=== PATIENT | male | born 1965 | race African-American/Black ===

== ENCOUNTER 2017-01-05 00:03 | Emergency (ER) | payer MEDICAID ==
[~2017-01-05] VITALS: Ht 172.7 cm; Wt 75.0 kg
[~2017-01-05 00:03] MED LIST: KEPP500 PO
[2017-01-05] MEDS ORDERED: SODIUM CHLORIDE 0.9% 1,000 ML IV ONE (00:17)
[2017-01-05] MEDS ORDERED: LEVETIRACETAM 500MG PREMIX 100 ML IV ONE (00:30)
[2017-01-05 00:37] LABS: BASOPHILS % 0.5 % (0.0-2.0); HEMATOCRIT. 35.2 % (42.0-52.0); HEMOGLOBIN. 11.9 g/dL (14.0-18.0); LYMPHOCYTES % 13.6 % (20.0-50.0); MEAN CORPUSCULAR HEMOGLOBIN 32.9 pg (28.0-32.0); MEAN CORPUSCULAR VOLUME 97.7 fL (80.0-94.0); MEAN PLATELET VOLUME 8.7 fl (7.4-10.4); MONOCYTES % 3.6 % (2.0-8.0); NEUTROPHILS % 81.3 % (40.0-76.0); PLATELET 85 x1000/uL (130-400); RED CELL DISTRIBUTION WIDTH 13.8 % (11.6-14.6)
[2017-01-05 00:47] LABS: AMMONIA 49 uMol/L (<32)
[2017-01-05 00:54] LABS: CARBON DIOXIDE 28 mEq/L (21-32); CHLORIDE 103 mEq/L (98-107); CREATINE KINASE 332 IU/L (39-308); ETHANOL BLOOD 51 mg/dL; TROPONIN I < 0.02 ng/mL (0.00-0.04)
[2017-01-05] MEDS ORDERED: LACTULOSE 20G/30ML UDC PO NR (03:00)
[2017-01-05] MEDS ORDERED: CEFTRIAXONE 1 G PREMIX 50 ML IV ONE (05:45)
[2017-01-05] MEDS ORDERED: AZITHROMYCIN 500 MG in DEXT 5% WATER 250 ML IV ONE (05:45)
[2017-01-05 08:43] VITALS: BP 122/79
== END 2017-01-05 10:07 | disposition home or self-care (01) ==
LOC: ER 00:08
DX: G40.909 Epilepsy, unspecified, not intractable, without status epilepticus (principal); S09.93XA Unspecified injury of face, initial encounter; J18.9 Pneumonia, unspecified organism; G93.89 Other specified disorders of brain; R73.9 Hyperglycemia, unspecified; F17.210 Nicotine dependence, cigarettes, uncomplicated; R74.0 Nonspecific elevation of levels of transaminase and lactic acid dehydrogenase [LDH]; F10.10 Alcohol abuse, uncomplicated; Y90.2 Blood alcohol level of 40-59 mg/100 ml; E72.20 Disorder of urea cycle metabolism, unspecified; Z91.14 Patient's other noncompliance with medication regimen; W01.0XXA Fall on same level from slipping, tripping and stumbling without subsequent striking against object, initial encounter; Y93.89 Activity, other specified; Y92.018 Other place in single-family (private) house as the place of occurrence of the external cause
CPT/HCPCS: 36415; 70450; 71010; 80053; 82140; 82550; 83605; 83690; 83880; 84443; 84484; 85025; 96365; 96366; 96368; 99285; G0482; J0456; J0696; J1953; J7030; Z7610; J7060

== ENCOUNTER 2017-01-08 08:12 | Emergency (ER) | payer MEDICAID ==
[~2017-01-08] VITALS: Ht 172.7 cm; Wt 66.0 kg
[2017-01-08 11:15] VITALS: BP 133/76
== END 2017-01-08 11:25 | disposition home or self-care (01) ==
LOC: ER 08:33
DX: Z76.0 Encounter for issue of repeat prescription (principal); G40.909 Epilepsy, unspecified, not intractable, without status epilepticus; F17.200 Nicotine dependence, unspecified, uncomplicated
CPT/HCPCS: 99283; Z7610

== ENCOUNTER 2017-01-27 00:41 | Emergency (ER) | payer MEDICAID ==
[~2017-01-27] VITALS: Ht 172.7 cm; Wt 70.0 kg
[2017-01-27] MEDS ORDERED: LEVETIRACETAM 500MG PREMIX 100 ML IV ONE (01:30)
[2017-01-27 04:37] VITALS: BP 131/79
== END 2017-01-27 04:22 | disposition home or self-care (01) ==
LOC: ER 00:41
DX: G40.909 Epilepsy, unspecified, not intractable, without status epilepticus (principal); F17.210 Nicotine dependence, cigarettes, uncomplicated; Z98.1 Arthrodesis status
CPT/HCPCS: 96365; 99284; J1953; Z7610

== ENCOUNTER 2017-02-12 12:31 | Emergency (ER) | payer MEDICAID ==
[~2017-02-12] VITALS: Ht 170.2 cm; Wt 70.0 kg
[2017-02-12] MEDS ORDERED: LEVETIRACETAM 500MG TABLET PO ONE (12:45)
[2017-02-12 13:08] LABS: BASOPHILS % 0.6 % (0.0-2.0); EOSINOPHILS % 0.1 % (0.0-5.0); HEMATOCRIT. 34.8 % (42.0-52.0); HEMOGLOBIN. 11.5 g/dL (14.0-18.0); LYMPHOCYTES % 9.7 % (20.0-50.0); MEAN CORPUSCULAR HEMOGLOBIN 32.2 pg (28.0-32.0); MEAN CORPUSCULAR VOLUME 97.6 fL (80.0-94.0); MEAN PLATELET VOLUME 8.3 fl (7.4-10.4); MONOCYTES % 13.4 % (2.0-8.0); NEUTROPHILS % 76.2 % (40.0-76.0); PLATELET 212 x1000/uL (130-400); RED BLOOD CELL COUNT 3.56 mill/uL (4.7-6.1); RED CELL DISTRIBUTION WIDTH 15.2 % (11.6-14.6)
[2017-02-12 13:12] LABS: PROTHROMBIN TIME 10.7 sec (9.4-11.6)
[2017-02-12 13:16] LABS: CHLORIDE 99 mEq/L (98-107)
[2017-02-12 13:26] LABS: CARBON DIOXIDE 24 mEq/L (21-32); ETHANOL BLOOD 50 mg/dL
[2017-02-12] MEDS ORDERED: IBUPROFEN 600MG TABLET PO ONE (15:00)
[2017-02-12 15:20] VITALS: BP 137/78
== END 2017-02-12 15:36 | disposition home or self-care (01) ==
LOC: ER 12:33
DX: R56.9 Unspecified convulsions (principal)
CPT/HCPCS: 36415; 80053; 85025; 85610; 99284; G0482; Z7610

== ENCOUNTER 2017-04-08 15:39 | Emergency (ER) | payer MEDICAID ==
[~2017-04-08] VITALS: Ht 170.2 cm; Wt 70.0 kg
[2017-04-08] MEDS ORDERED: SODIUM CHLORIDE 0.9% 500 ML IV ONE (16:02)
[2017-04-08] MEDS ORDERED: LEVETIRACETAM 500MG PREMIX 100 ML IV ONE (16:15)
[2017-04-08] MEDS ORDERED: LORAZEPAM 2MG/ML CPJ IV ONE (16:15)
[2017-04-08 16:27] LABS: CHLORIDE 108 mEq/L (98-107)
[2017-04-08 16:28] LABS: BASOPHILS % 0.6 % (0.0-2.0); EOSINOPHILS % 1.7 % (0.0-5.0); HEMATOCRIT. 34.1 % (42.0-52.0); HEMOGLOBIN. 11.3 g/dL (14.0-18.0); LYMPHOCYTES % 31.1 % (20.0-50.0); MEAN CORPUSCULAR HEMOGLOBIN 31.3 pg (28.0-32.0); MEAN CORPUSCULAR VOLUME 94.2 fL (80.0-94.0); MEAN PLATELET VOLUME 8.5 fl (7.4-10.4); MONOCYTES % 8.8 % (2.0-8.0); NEUTROPHILS % 57.8 % (40.0-76.0); PLATELET 226 x1000/uL (130-400); RED BLOOD CELL COUNT 3.62 mill/uL (4.7-6.1); RED CELL DISTRIBUTION WIDTH 15.4 % (11.6-14.6)
[2017-04-08 16:34] LABS: CARBON DIOXIDE 24 mEq/L (21-32)
[2017-04-08 18:06] VITALS: BP 146/95
== END 2017-04-08 22:54 | disposition home or self-care (01) ==
LOC: ER 15:53
DX: G40.909 Epilepsy, unspecified, not intractable, without status epilepticus (principal); Z91.14 Patient's other noncompliance with medication regimen; S00.512A Abrasion of oral cavity, initial encounter; X58.XXXA Exposure to other specified factors, initial encounter; Y93.89 Activity, other specified; Y92.89 Other specified places as the place of occurrence of the external cause
CPT/HCPCS: 36415; 80053; 85025; 96365; 96375; 99285; J1953; J2060; J7040; Z7610; J7030

== ENCOUNTER 2017-07-26 14:37 | Emergency (ER) | payer MEDICAID ==
[~2017-07-26] VITALS: Ht 172.7 cm; Wt 65.0 kg
[~2017-07-26 14:37] MED LIST changes: +CEPH-569 PO; -KEPP500 PO; +LEVE1000 PO
[2017-07-26] MEDS ORDERED: SODIUM CHLORIDE 0.9% 1,000 ML IV ONE (14:53)
[2017-07-26] MEDS ORDERED: LEVETIRACETAM 500MG PREMIX 100 ML IV ONE (15:00)
[2017-07-26] MEDS ORDERED: LORAZEPAM 2MG/ML CPJ IV ONE (15:00)
[2017-07-26 15:17] LABS: BASOPHILS % 0.4 % (0.0-2.0); EOSINOPHILS % 0.6 % (0.0-5.0); HEMATOCRIT. 32.8 % (42.0-52.0); HEMOGLOBIN. 11.1 g/dL (14.0-18.0); LYMPHOCYTES % 15.6 % (20.0-50.0); MEAN CORPUSCULAR HEMOGLOBIN 31.7 pg (28.0-32.0); MEAN CORPUSCULAR VOLUME 93.7 fL (80.0-94.0); MEAN PLATELET VOLUME 9.1 fl (7.4-10.4); MONOCYTES % 7.8 % (2.0-8.0); NEUTROPHILS % 75.6 % (40.0-76.0); PLATELET 112 x1000/uL (130-400); PROTHROMBIN TIME 10.7 sec (9.4-11.6)
[2017-07-26 15:19] LABS: CHLORIDE 100 mEq/L (98-107)
[2017-07-26 15:25] LABS: ETHANOL BLOOD < 10 mg/dL
[2017-07-26 15:29] LABS: CREATINE KINASE 470 IU/L (39-308)
[2017-07-26 15:31] LABS: CARBAMAZEPINE < 0.5 ug/mL (4-12)
[2017-07-26 15:37] LABS: PHENOBARBITAL < 2.1 ug/mL (15.0-40.0)
[2017-07-26 17:42] LABS: CLARITY URINE CLEAR (CLEAR); COLOR URINE YELLOW (YELLOW); KETONES URINE TRACE (NEGATIVE); LEUKOCYTE ESTERASE URINE 1+ (NEGATIVE); NITRITE URINE NEGATIVE (NEGATIVE); OCCULT BLOOD URINE 2+ (NEGATIVE); PROTEIN URINE 2+ (NEGATIVE)
[2017-07-26 17:49] LABS: CREATINE KINASE 483 IU/L (39-308)
[2017-07-26 17:51] LABS: *AMPHETAMINES SCREEN URINE NEGATIVE (NEGATIVE); *BARBITURATES SCREEN URINE NEGATIVE (NEGATIVE); *BENZODIAZEPINES SCREEN URINE PRESUMTIVE POSITIVE (NEGATIVE); *COCAINE SCREEN URINE NEGATIVE (NEGATIVE); METHADONE URINE SCREEN NEGATIVE (NEGATIVE)
[2017-07-26 17:53] LABS: CANNABINOID URINE SCREEN NEGATIVE (NEGATIVE); OPIATES URINE SCREEN NEGATIVE (NEGATIVE); PHENCYCLIDINE URINE SCREEN NEGATIVE (NEGATIVE)
[2017-07-26 19:45] VITALS: BP 136/84
== END 2017-07-26 21:46 | disposition home or self-care (01) ==
LOC: ER 14:49
DX: R56.9 Unspecified convulsions (principal); M62.82 Rhabdomyolysis; F10.239 Alcohol dependence with withdrawal, unspecified; F17.290 Nicotine dependence, other tobacco product, uncomplicated; R79.1 Abnormal coagulation profile; Z91.14 Patient's other noncompliance with medication regimen
CPT/HCPCS: 36415; 80053; 80156; 80165; 80184; 80185; 80305; 81003; 82550; 84443; 84484; 85025; 85610; 87077; 87086; 87186; 93005; 96365; 96375; 99285; 99406; G0482; J1953; J2060; J7030; Z7610

== ENCOUNTER 2018-03-14 10:58 | Inpatient (IN) | payer MEDICAID ==
[~2018-03-14] VITALS: Ht 172.7 cm; Wt 64.4 kg
[~2018-03-14 10:58] MED LIST changes: -CEPH-569 PO
[2018-03-14] MEDS ORDERED: LEVETIRACETAM 1000MG/100ML 100 ML IV ONE (11:15)
[2018-03-14] MEDS ORDERED: FOLIC ACID 1 MG, THIAMINE HCL 100 MG, MVI, ADULT NO.1 10 ML in DEXTROSE 5% WATER 1,000 ML IV ONE ×4 (11:15)
[2018-03-14] MEDS ORDERED: ONDANSETRON HCL 4MG/2ML INJ IV ONE (11:30)
[2018-03-14 11:45] LABS: BASOPHILS % 1.4 % (0.0-2.0); EOSINOPHILS % 0.7 % (0.0-5.0); HEMATOCRIT. 39.4 % (42.0-52.0); HEMOGLOBIN. 12.7 g/dL (14.0-18.0); LYMPHOCYTES % 24.5 % (20.0-50.0); MEAN CORPUSCULAR HEMOGLOBIN 31.3 pg (28.0-32.0); MEAN CORPUSCULAR VOLUME 97.2 fL (80.0-94.0); MEAN PLATELET VOLUME 8.7 fl (7.4-10.4); MONOCYTES % 5.3 % (2.0-8.0); NEUTROPHILS % 68.1 % (40.0-76.0); PLATELET 147 x1000/uL (130-400); RED BLOOD CELL COUNT 4.05 mill/uL (4.7-6.1); RED CELL DISTRIBUTION WIDTH 19.7 % (11.6-14.6)
[2018-03-14 11:53] LABS: CHLORIDE 104 mEq/L (98-107)
[2018-03-14 11:55] LABS: PARTIAL THROMBOPLASTIN TIME 32.2 sec (23.4-31.0); PROTHROMBIN TIME 10.4 sec (9.1-11.1)
[2018-03-14] MEDS ORDERED: SODIUM CHLORIDE 0.9% 1000ML BAG (SEPSIS BOLUS) IV ONE (12:15)
[2018-03-14 12:34] LABS: ETHANOL BLOOD 316 mg/dL
[2018-03-14 13:06] LABS: *BARBITURATES SCREEN URINE NEGATIVE (NEGATIVE)
[2018-03-14 13:07] LABS: *BENZODIAZEPINES SCREEN URINE NEGATIVE (NEGATIVE); CANNABINOID URINE SCREEN NEGATIVE (NEGATIVE); METHADONE URINE SCREEN NEGATIVE (NEGATIVE); OPIATES URINE SCREEN NEGATIVE (NEGATIVE); PHENCYCLIDINE URINE SCREEN NEGATIVE (NEGATIVE)
[2018-03-14 13:08] LABS: *AMPHETAMINES SCREEN URINE NEGATIVE (NEGATIVE)
[2018-03-14 13:16] LABS: *COCAINE SCREEN URINE NEGATIVE (NEGATIVE)
[2018-03-14 13:32] LABS: BG BASE EXCESS -6.1 mmol/L (-2.0-2.0); BG DEOXYHEMOGLOBIN 2.7 % (0.0-5.0); BG HCO3 ACT 21.2 mmol/L (22.0-26.0); BG METHEMOGLOBIN 0.2 % (0.0-1.5); BG OXYGEN SATURATION 97.2 % (92.0-98.5); BG OXYHEMOGLOBIN 95.1 % (94.0-97.0); BG PCO2 49.4 mmHg (35.0-45.0); BG PH 7.251 (7.350-7.450); BG PO2 118.1 mmHg (75.0-100.0); BG SAMPLE SITE RIGHT RADIAL; BG TOTAL HEMOGLOBIN 12.6 g/dL (12.0-18.0); BG VENT MODE ROOM AIR
[2018-03-14] MEDS ORDERED: KETOROLAC 15MG/ML VIAL IV PRN (14:30)
[2018-03-14] MEDS ORDERED: CLONIDINE 0.1MG TABLET PO PRN (14:30)
[2018-03-14] MEDS ORDERED: DOCUSATE SODIUM 100MG CAPSULE PO PRN (14:30)
[2018-03-14] MEDS ORDERED: ONDANSETRON HCL 4MG/2ML INJ IV PRN (14:30)
[2018-03-14] MEDS ORDERED: IPRATROPIUM/ALBUTEROL 0.5-3(2.5)MG/3ML NEB INH PRN (14:30)
[2018-03-14] MEDS ORDERED: GUAIFENESIN 200MG/10ML SUGAR FREE UDC PO PRN (14:30)
[2018-03-14] MEDS ORDERED: NITROGLYCERIN 0.4MG TABLET SL SL PRN (14:30)
[2018-03-14] MEDS ORDERED: NA PHOS,M-B/NA PHOS,DI-BA ENEMA 118ML PR PRN (14:30)
[2018-03-14] MEDS ORDERED: ACETAMINOPHEN 325MG TABLET PO PRN (14:30)
[2018-03-14] MEDS ORDERED: MAGNESIUM/ALUMINUM HYDROXIDE/SIMETHICONE 30ML UDC PO PRN (14:30)
[2018-03-14] MEDS ORDERED: LORAZEPAM 2MG/ML CPJ IV PRN (14:30)
[2018-03-14] MEDS ORDERED: ZOLPIDEM TARTRATE 5MG TABLET PO PRN (14:30)
[2018-03-14 16:17] LABS: CREATINE KINASE MB FRACTION 27.5 ng/mL (0.5-3.6)
[2018-03-14 17:45] VITALS: BP 106/77
[2018-03-14 18:00] VITALS: BP 106/73
[2018-03-14] MEDS ORDERED: INFLUENZA VIRUS VACCINE(AFLURIA) 0.5ML SYR IM ONE (19:00)
[2018-03-14 20:00] VITALS: BP 91/43
[2018-03-14] MEDS: ENOXAPARIN 40MG/0.4ML SYR SUBCUT SCH ×2 (21:00→21:49)
[2018-03-14] MEDS: FAMOTIDINE 20MG TABLET PO SCH (21:49)
[2018-03-14] MEDS: SUCRALFATE 1 G/10 ML UDC PO SCH (21:49)
[2018-03-14 22:00] VITALS: BP 131/73
[2018-03-15 02:00] VITALS: BP 99/59
[2018-03-15 03:39] VITALS: BP 106/43
[2018-03-15 05:58] VITALS: BP 130/71
[2018-03-15 08:00] VITALS: BP 95/66
[2018-03-15] MEDS: SUCRALFATE 1 G/10 ML UDC PO SCH (08:29)
[2018-03-15] MEDS: FAMOTIDINE 20MG TABLET PO SCH (08:29)
[2018-03-15 10:00] VITALS: BP 121/76
[2018-03-15] MEDS ORDERED: MVI, ADULT NO.1 10 ML, FOLIC ACID 1 MG, THIAMINE HCL 100 MG in SODIUM CHLORIDE 0.9% 1,0... IV SCH ×4 (11:00)
[2018-03-15 11:18] VITALS: BP 138/81
== END 2018-03-15 12:30 | disposition home or self-care (01) | DRG 42 ==
LOC: ER 13:55 → 5EST 14:06 → EDBEDREQ 14:08 → ENRESERV 15:49
PROVIDERS: ADMIT Internal Medicine; ATTEND Internal Medicine
DX: G31.2 Degeneration of nervous system due to alcohol (principal); D64.9 Anemia, unspecified; E86.0 Dehydration; R73.03 Prediabetes; R74.0 Nonspecific elevation of levels of transaminase and lactic acid dehydrogenase [LDH]; F10.129 Alcohol abuse with intoxication, unspecified; Y90.8 Blood alcohol level of 240 mg/100 ml or more
CPT/HCPCS: 36415; 36600; 71045; 80305; 80307; 80329; 82375; 82550; 82553; 82805; 83036; 83605; 83735; 84484; 93005; 96365; 96375; 99291; G0482; J1650; J1953; J2405; J3411; J3490; J7030; J7070; A4315

== ENCOUNTER 2018-05-23 13:48 | Inpatient (IN) | payer MEDICAID ==
[~2018-05-23] VITALS: Ht 175.3 cm; Wt 68.5 kg
[2018-05-23] MEDS ORDERED: FAMOTIDINE 20MG/2ML VIAL IV STA (14:02)
[2018-05-23] MEDS ORDERED: ONDANSETRON HCL 4MG/2ML INJ IV STA (14:02)
[2018-05-23] MEDS ORDERED: SODIUM CHLORIDE 0.9% 1,000 ML IV ONE (14:02)
[2018-05-23] MEDS ORDERED: LEVETIRACETAM 1000MG/100ML 100 ML IV ONE (14:30)
[2018-05-23] MEDS ORDERED: PANTOPRAZOLE SODIUM 40 MG/VIAL IV ONE (14:30)
[2018-05-23 15:02] LABS: BASOPHILS % 0.2 % (0.0-2.0); HEMATOCRIT. 39.2 % (42.0-52.0); HEMOGLOBIN. 12.9 g/dL (14.0-18.0); LYMPHOCYTES % 8.5 % (20.0-50.0); MEAN CORPUSCULAR HEMOGLOBIN 31.3 pg (28.0-32.0); MEAN CORPUSCULAR VOLUME 95.5 fL (80.0-94.0); MEAN PLATELET VOLUME 9.4 fl (7.4-10.4); MONOCYTES % 4.1 % (2.0-8.0); NEUTROPHILS % 87.2 % (40.0-76.0); PLATELET 130 x1000/uL (130-400); RED CELL DISTRIBUTION WIDTH 14.1 % (11.6-14.6)
[2018-05-23 15:06] LABS: CHLORIDE 93 mEq/L (98-107); INR 1.1; PROTHROMBIN TIME 10.6 sec (9.1-11.1)
[2018-05-23 15:10] LABS: ETHANOL BLOOD 120 mg/dL
[2018-05-23] MEDS ORDERED: IPRATROPIUM BROMIDE (0.02%) 0.5MG/2.5ML NEB HHN STA (17:24)
[2018-05-23] MEDS ORDERED: ALBUTEROL (0.083%) 2.5MG/3ML NEB HHN STA (17:24)
[2018-05-23] MEDS ORDERED: CLONIDINE 0.1MG TABLET PO PRN (19:00)
[2018-05-23] MEDS ORDERED: CEFTRIAXONE 1 G PREMIX 50 ML IV NR (19:00)
[2018-05-23] MEDS ORDERED: IPRATROPIUM/ALBUTEROL 0.5-3(2.5)MG/3ML NEB INH PRN (19:00)
[2018-05-23] MEDS ORDERED: MAGNESIUM 2 G PREMIX 50 ML IV NR (19:00)
[2018-05-23] MEDS ORDERED: MORPHINE SULFATE 4 MG/ML CPJ (NOT FOR IM USE) IV PRN (19:00)
[2018-05-23] MEDS ORDERED: ONDANSETRON HCL 4MG/2ML INJ IV PRN (19:00)
[2018-05-23 19:21] LABS: BG BASE EXCESS 1.2 mmol/L (-2.0-2.0); BG CARBOXYHEMOGLOBIN 0.7 % (0.5-1.5); BG DEOXYHEMOGLOBIN 4.3 % (0.0-5.0); BG FRACTION INSPIRED OXYGEN 100; BG HCO3 ACT 27.2 mmol/L (22.0-26.0); BG METHEMOGLOBIN 0.3 % (0.0-1.5); BG OXYGEN SATURATION 95.7 % (92.0-98.5); BG OXYHEMOGLOBIN 94.7 % (94.0-97.0); BG PCO2 48.3 mmHg (35.0-45.0); BG PH 7.368 (7.350-7.450); BG SAMPLE SITE RIGHT BRACHIAL; BG TOTAL HEMOGLOBIN 13.9 g/dL (12.0-18.0); BG VENT MODE MASK - NRB
[2018-05-23 19:46] LABS: TOTAL IRON BINDING CAPACITY 412 ug/dL (250-450)
[2018-05-23] MEDS ORDERED: FOLIC ACID 1 MG, THIAMINE HCL 100 MG, MVI, ADULT NO.1 10 ML in DEXTROSE 5% WATER 1,000 ML IV ONE ×4 (20:00)
[2018-05-23 20:05] LABS: FERRITIN 88 ng/mL (22-322)
[2018-05-23 20:17] LABS: HEPATITIS B SURFACE ANTIGEN NEGATIVE
[2018-05-23 20:41] LABS: CLARITY URINE CLEAR (CLEAR); COLOR URINE YELLOW (YELLOW); KETONES URINE TRACE (NEGATIVE); LEUKOCYTE ESTERASE URINE 1+ (NEGATIVE); NITRITE URINE NEGATIVE (NEGATIVE); OCCULT BLOOD URINE 1+ (NEGATIVE); PH URINE 6.5 (4.5-8.0); PROTEIN URINE 1+ (NEGATIVE); SPECIFIC GRAVITY URINE 1.019 (1.005-1.030); UROBILINOGEN URINE 0.2 E.U./dL (0.2-1.0)
[2018-05-23 20:46] LABS: HEPATITIS A AB IGM NEGATIVE (NEGATIVE)
[2018-05-23 20:53] LABS: *AMPHETAMINES SCREEN URINE NEGATIVE (NEGATIVE); *BARBITURATES SCREEN URINE NEGATIVE (NEGATIVE); *BENZODIAZEPINES SCREEN URINE NEGATIVE (NEGATIVE); *COCAINE SCREEN URINE NEGATIVE (NEGATIVE); METHADONE URINE SCREEN NEGATIVE (NEGATIVE); OPIATES URINE SCREEN NEGATIVE (NEGATIVE)
[2018-05-23 20:54] LABS: CANNABINOID URINE SCREEN NEGATIVE (NEGATIVE); PHENCYCLIDINE URINE SCREEN NEGATIVE (NEGATIVE)
[2018-05-23 21:25] LABS: VITAMIN B12 SERUM 1014 pg/mL (211-911)
[2018-05-23] MEDS ORDERED: IOHEXOL-350 100 ML BOTTLE ONE (21:36)
[2018-05-23 23:50] VITALS: BP 120/70
[2018-05-24] VITALS: BP 111/74
[2018-05-24] MEDS: LORAZEPAM 2MG/ML CPJ IV PRN ×2 (00:06→19:35)
[2018-05-24] MEDS: CHLORDIAZEPOXIDE 25MG CAPSULE PO SCH ×3 (00:06→16:33)
[2018-05-24 04:00] VITALS: BP 135/68
[2018-05-24 07:02] LABS: BASOPHILS % 0.2 % (0.0-2.0); HEMATOCRIT. 35.8 % (42.0-52.0); HEMOGLOBIN. 11.9 g/dL (14.0-18.0); LYMPHOCYTES % 8.9 % (20.0-50.0); MEAN CORPUSCULAR HEMOGLOBIN 31.5 pg (28.0-32.0); MEAN CORPUSCULAR VOLUME 95.1 fL (80.0-94.0); MEAN PLATELET VOLUME 10.6 fl (7.4-10.4); MONOCYTES % 7.7 % (2.0-8.0); NEUTROPHILS % 83.2 % (40.0-76.0); PLATELET 80 x1000/uL (130-400); RED BLOOD CELL COUNT 3.77 mill/uL (4.7-6.1); RED CELL DISTRIBUTION WIDTH 14.1 % (11.6-14.6)
[2018-05-24 08:13] LABS: CHLORIDE 97 mEq/L (98-107)
[2018-05-24 08:17] VITALS: BP 99/67
[2018-05-24] MEDS: PANTOPRAZOLE SODIUM 40 MG/VIAL IV SCH ×2 (08:52→16:33)
[2018-05-24] MEDS: LEVETIRACETAM 500MG/5ML CUP PO SCH ×2 (08:52→20:19)
[2018-05-24 11:04] LABS: BG BASE EXCESS 6.6 mmol/L (-2.0-2.0); BG CARBOXYHEMOGLOBIN 0.2 % (0.5-1.5); BG DEOXYHEMOGLOBIN 11.2 % (0.0-5.0); BG FRACTION INSPIRED OXYGEN 21; BG HCO3 ACT 30.2 mmol/L (22.0-26.0); BG METHEMOGLOBIN 0.3 % (0.0-1.5); BG OXYGEN SATURATION 88.7 % (92.0-98.5); BG OXYHEMOGLOBIN 88.3 % (94.0-97.0); BG PCO2 39.4 mmHg (35.0-45.0); BG PH 7.502 (7.350-7.450); BG PO2 54.2 mmHg (75.0-100.0); BG SAMPLE SITE RIGHT BRACHIAL; BG TOTAL HEMOGLOBIN 11.8 g/dL (12.0-18.0); BG VENT MODE ROOM AIR
[2018-05-24 12:00] VITALS: BP 109/58
[2018-05-24] MEDS: MULTIVITAMINS,THER W-MINERALS TABLET PO SCH (12:33)
[2018-05-24] MEDS: THIAMINE HCL 100MG TABLET PO SCH (12:33)
[2018-05-24] MEDS: FOLIC ACID 1MG TABLET PO SCH (12:33)
[2018-05-24] MEDS ORDERED: IPRATROPIUM/ALBUTEROL 0.5-3(2.5)MG/3ML NEB HHN PRN (15:30)
[2018-05-24 16:00] VITALS: BP 99/64
[2018-05-24] MEDS: NICOTINE 14MG PATCH TD SCH (16:33)
[2018-05-24] MEDS: LACTULOSE 20G/30ML UDC PO SCH ×2 (16:33→22:10)
[2018-05-24 17:22] LABS: AMYLASE 403 IU/L (25-115)
[2018-05-24] MEDS: PIPERACILLIN/TAZ 3.375G PREMIX 50 ML IV SCH ×2 (19:31→23:54)
[2018-05-24 20:00] VITALS: BP 90/63
[2018-05-24] MEDS: IPRATROPIUM/ALBUTEROL 0.5-3(2.5)MG/3ML NEB HHN SCH (21:55)
[2018-05-25] VITALS (7 sets, daily range): BP systolic 90–136; BP diastolic 57–83
[2018-05-25] MEDS: LORAZEPAM 2MG/ML CPJ IV PRN (00:21)
[2018-05-25] MEDS: CHLORDIAZEPOXIDE 25MG CAPSULE PO SCH ×3 (00:21→16:00)
[2018-05-25] MEDS: DEXT 5%/0.45% NACL KCL 20MEQ/L 1,000 ML IV SCH ×2 (01:06→13:31)
[2018-05-25] MEDS: LACTULOSE 20G/30ML UDC PO SCH ×3 (05:31→20:13)
[2018-05-25] MEDS: PIPERACILLIN/TAZ 3.375G PREMIX 50 ML IV SCH (05:31)
[2018-05-25] MEDS: ACETYLCYSTEINE 100MG/ML 10% VIAL 4ML INH SCH ×2 (05:44→12:18)
[2018-05-25] MEDS: IPRATROPIUM/ALBUTEROL 0.5-3(2.5)MG/3ML NEB HHN SCH ×5 (05:44→21:20)
[2018-05-25] MEDS ORDERED: FUROSEMIDE 40MG/4ML VIAL IVP NR (06:00)
[2018-05-25 06:15] LABS: HEMOGLOBIN. 10.2 g/dL (14.0-18.0); MEAN CORPUSCULAR HEMOGLOBIN 31.5 pg (28.0-32.0); MEAN CORPUSCULAR VOLUME 95.6 fL (80.0-94.0); MEAN PLATELET VOLUME 11.2 fl (7.4-10.4); PLATELET 53 x1000/uL (130-400); RED BLOOD CELL COUNT 3.24 mill/uL (4.7-6.1); RED CELL DISTRIBUTION WIDTH 13.9 % (11.6-14.6)
[2018-05-25 06:18] LABS: INR 1.1; PARTIAL THROMBOPLASTIN TIME 42.4 sec (23.4-31.0); PROTHROMBIN TIME 11.2 sec (9.1-11.1)
[2018-05-25 06:51] LABS: CHLORIDE 99 mEq/L (98-107)
[2018-05-25 06:59] LABS: LDL CHOLESTEROL 11 mg/dL (5-100)
[2018-05-25 07:01] LABS: HDL CHOLESTEROL 85 mg/dL (40-59)
[2018-05-25 07:47] LABS: BG BASE EXCESS 6.6 mmol/L (-2.0-2.0); BG CARBOXYHEMOGLOBIN 0.1 % (0.5-1.5); BG DEOXYHEMOGLOBIN 0.5 % (0.0-5.0); BG HCO3 ACT 31.6 mmol/L (22.0-26.0); BG METHEMOGLOBIN 0.3 % (0.0-1.5); BG OXYGEN SATURATION 99.5 % (92.0-98.5); BG OXYHEMOGLOBIN 99.1 % (94.0-97.0); BG PCO2 47.2 mmHg (35.0-45.0); BG PH 7.444 (7.350-7.450); BG PO2 236.9 mmHg (75.0-100.0); BG SAMPLE SITE RIGHT BRACHIAL; BG TOTAL HEMOGLOBIN 11.2 g/dL (12.0-18.0); BG VENT MODE MASK - NRB
[2018-05-25] MEDS: NICOTINE 14MG PATCH TD SCH (08:58)
[2018-05-25] MEDS: THIAMINE HCL 100MG TABLET PO SCH (08:58)
[2018-05-25] MEDS: PANTOPRAZOLE SODIUM 40 MG/VIAL IV SCH ×2 (08:58→17:00)
[2018-05-25] MEDS: FOLIC ACID 1MG TABLET PO SCH (08:58)
[2018-05-25] MEDS: LEVETIRACETAM 500MG/5ML CUP PO SCH ×2 (08:58→20:13)
[2018-05-25] MEDS: MULTIVITAMINS,THER W-MINERALS TABLET PO SCH (08:58)
[2018-05-25 10:00] LABS: PLATELET ESTIMATE MARKEDLY DECREASED
[2018-05-25 13:06] LABS: HIV SCREEN 4G Non Reactive (Non Reactive)
[2018-05-25] MEDS: CEFEPIME 1,000 MG in DEXTROSE 5% WATER 50 ML IV SCH ×2 (13:23→22:33)
[2018-05-25] MEDS: METRONIDAZOLE 500 MG PREMIX 100 ML IV SCH ×2 (13:31→20:13)
[2018-05-26 00:27] VITALS: BP 111/67
[2018-05-26] MEDS: IPRATROPIUM/ALBUTEROL 0.5-3(2.5)MG/3ML NEB HHN SCH ×5 (00:37→21:11)
[2018-05-26] MEDS: ACETYLCYSTEINE 100MG/ML 10% VIAL 4ML INH SCH ×3 (00:38→16:43)
[2018-05-26 04:00] VITALS: BP 102/63
[2018-05-26] MEDS: METRONIDAZOLE 500 MG PREMIX 100 ML IV SCH ×3 (04:30→20:44)
[2018-05-26] MEDS: DEXT 5%/0.45% NACL KCL 20MEQ/L 1,000 ML IV SCH ×3 (04:30→22:33)
[2018-05-26] MEDS: LACTULOSE 20G/30ML UDC PO SCH ×3 (05:08→21:02)
[2018-05-26 05:45] LABS: BASOPHILS % 0.1 % (0.0-2.0); EOSINOPHILS % 0.3 % (0.0-5.0); HEMATOCRIT. 30.5 % (42.0-52.0); LYMPHOCYTES % 7.9 % (20.0-50.0); MEAN CORPUSCULAR HEMOGLOBIN 31.4 pg (28.0-32.0); MEAN CORPUSCULAR VOLUME 95.4 fL (80.0-94.0); MEAN PLATELET VOLUME 10.5 fl (7.4-10.4); MONOCYTES % 5.5 % (2.0-8.0); NEUTROPHILS % 86.2 % (40.0-76.0); PLATELET 51 x1000/uL (130-400); RED BLOOD CELL COUNT 3.19 mill/uL (4.7-6.1); RED CELL DISTRIBUTION WIDTH 14.3 % (11.6-14.6)
[2018-05-26 06:28] LABS: CHLORIDE 102 mEq/L (98-107)
[2018-05-26 08:00] VITALS: BP 123/90
[2018-05-26] MEDS: LEVETIRACETAM 500MG/5ML CUP PO SCH ×2 (09:10→20:54)
[2018-05-26] MEDS: MULTIVITAMINS,THER W-MINERALS TABLET PO SCH (09:10)
[2018-05-26] MEDS: CHLORDIAZEPOXIDE 25MG CAPSULE PO SCH ×4 (09:10→23:27)
[2018-05-26] MEDS: PANTOPRAZOLE SODIUM 40 MG/VIAL IV SCH ×2 (09:10→16:55)
[2018-05-26] MEDS: NICOTINE 14MG PATCH TD SCH (09:10)
[2018-05-26] MEDS: FOLIC ACID 1MG TABLET PO SCH (09:11)
[2018-05-26] MEDS: THIAMINE HCL 100MG TABLET PO SCH (09:11)
[2018-05-26 12:00] VITALS: BP 107/71
[2018-05-26] MEDS: CEFEPIME 1,000 MG in DEXTROSE 5% WATER 50 ML IV SCH ×2 (14:40→23:27)
[2018-05-26 16:00] VITALS: BP 116/81
[2018-05-26 20:00] VITALS: BP 114/82
[2018-05-27] MEDS: IPRATROPIUM/ALBUTEROL 0.5-3(2.5)MG/3ML NEB HHN SCH ×5 (00:56→20:33)
[2018-05-27] MEDS: ACETYLCYSTEINE 100MG/ML 10% VIAL 4ML INH SCH ×2 (00:59→16:00)
[2018-05-27 01:39] VITALS: BP 127/91
[2018-05-27] MEDS: METRONIDAZOLE 500 MG PREMIX 100 ML IV SCH ×3 (03:08→20:36)
[2018-05-27 04:00] VITALS: BP 119/78
[2018-05-27] MEDS: LACTULOSE 20G/30ML UDC PO SCH ×3 (05:45→21:03)
[2018-05-27 08:00] VITALS: BP 117/81
[2018-05-27] MEDS: MULTIVITAMINS,THER W-MINERALS TABLET PO SCH (08:58)
[2018-05-27] MEDS: FOLIC ACID 1MG TABLET PO SCH (08:58)
[2018-05-27] MEDS: CHLORDIAZEPOXIDE 25MG CAPSULE PO SCH ×3 (08:58→23:20)
[2018-05-27] MEDS: PANTOPRAZOLE SODIUM 40 MG/VIAL IV SCH ×2 (08:58→16:53)
[2018-05-27] MEDS: LEVETIRACETAM 500MG/5ML CUP PO SCH ×2 (08:58→20:43)
[2018-05-27] MEDS: THIAMINE HCL 100MG TABLET PO SCH (08:58)
[2018-05-27] MEDS: NICOTINE 14MG PATCH TD SCH (08:58)
[2018-05-27 12:00] VITALS: BP 112/75
[2018-05-27] MEDS: DEXT 5%/0.45% NACL KCL 20MEQ/L 1,000 ML IV SCH ×2 (12:15→20:36)
[2018-05-27] MEDS: CEFEPIME 1,000 MG in DEXTROSE 5% WATER 50 ML IV SCH ×2 (12:15→22:33)
[2018-05-27 16:00] VITALS: BP 120/69
[2018-05-27 20:00] VITALS: BP 123/59
[2018-05-28] VITALS (7 sets, daily range): BP systolic 108–126; BP diastolic 68–85
[2018-05-28] MEDS: IPRATROPIUM/ALBUTEROL 0.5-3(2.5)MG/3ML NEB HHN SCH ×5 (00:23→16:39)
[2018-05-28] MEDS: ACETYLCYSTEINE 100MG/ML 10% VIAL 4ML INH SCH ×3 (00:24→16:39)
[2018-05-28] MEDS: METRONIDAZOLE 500 MG PREMIX 100 ML IV SCH (03:47)
[2018-05-28] MEDS: LACTULOSE 20G/30ML UDC PO SCH (05:01)
[2018-05-28] MEDS: NICOTINE 14MG PATCH TD SCH (08:48)
[2018-05-28] MEDS: PANTOPRAZOLE SODIUM 40 MG/VIAL IV SCH ×2 (08:48→17:30)
[2018-05-28] MEDS: CHLORDIAZEPOXIDE 25MG CAPSULE PO SCH ×2 (08:48→17:30)
[2018-05-28] MEDS: FOLIC ACID 1MG TABLET PO SCH (08:48)
[2018-05-28] MEDS: THIAMINE HCL 100MG TABLET PO SCH (08:48)
[2018-05-28] MEDS: MULTIVITAMINS,THER W-MINERALS TABLET PO SCH (08:48)
[2018-05-28] MEDS: LEVETIRACETAM 500MG/5ML CUP PO SCH (08:48)
[2018-05-28] MEDS: CEFEPIME 1,000 MG in DEXTROSE 5% WATER 50 ML IV SCH (11:28)
[2018-05-28] MEDS ORDERED: LACTULOSE 20G/30ML UDC PO SCH (17:00)
[2018-05-28] MEDS ORDERED: METRONIDAZOLE 500MG TABLET PO SCH (18:00)
[2018-05-28] MEDS ORDERED: RIFAXIMIN 550 MG TABLET PO SCH (21:00)
== END 2018-05-28 20:36 | disposition home health service (06) | DRG 720 ==
LOC: ER 13:48 → 7WST 15:50 → EDBEDREQ 16:07 → ENRESERV 22:17
PROVIDERS: ADMIT Internal Medicine; ATTEND Internal Medicine
PROC: 4A00X4Z Measurement of Central Nervous Electrical Activity, External Approach (ICD-10-PCS; principal; 2018-05-25)
DX: A41.9 Sepsis, unspecified organism (principal); J96.00 Acute respiratory failure, unspecified whether with hypoxia or hypercapnia; J69.0 Pneumonitis due to inhalation of food and vomit; I85.11 Secondary esophageal varices with bleeding; G92 Toxic encephalopathy; E83.42 Hypomagnesemia; D69.6 Thrombocytopenia, unspecified; R65.20 Severe sepsis without septic shock; E88.09 Other disorders of plasma-protein metabolism, not elsewhere classified; N39.0 Urinary tract infection, site not specified; Y90.6 Blood alcohol level of 120-199 mg/100 ml; E86.0 Dehydration; E87.1 Hypo-osmolality and hyponatremia; D53.9 Nutritional anemia, unspecified; G40.909 Epilepsy, unspecified, not intractable, without status epilepticus; K76.0 Fatty (change of) liver, not elsewhere classified; K74.60 Unspecified cirrhosis of liver; K28.4 Chronic or unspecified gastrojejunal ulcer with hemorrhage; K86.1 Other chronic pancreatitis; E87.8 Other disorders of electrolyte and fluid balance, not elsewhere classified; F10.239 Alcohol dependence with withdrawal, unspecified; B19.20 Unspecified viral hepatitis C without hepatic coma; F17.200 Nicotine dependence, unspecified, uncomplicated; G93.89 Other specified disorders of brain; T51.91XA Toxic effect of unspecified alcohol, accidental (unintentional), initial encounter; Y92.89 Other specified places as the place of occurrence of the external cause; Z59.0 Homelessness; Z86.73 Personal history of transient ischemic attack (TIA), and cerebral infarction without residual deficits; Z79.899 Other long term (current) drug therapy
CPT/HCPCS: 36415; 36600; 70551; 71045; 71275; 74181; 76705; 80048; 80061; 80076; 80305; 80320; 82140; 82150; 82248; 82375; 82607; 82728; 82746; 82805; 83036; 83540; 83550; 83735; 83880; 84145; 84443; 84484; 85044; 86301; 86705; 86709; 86803; 86850; 86900; 87340; 87389; 87804; 92610; 93005; 94640; 94667; 96365; 96375; 97162; 97164; 97166; 99291; C9113; J0692; J0696; J1940; J1953; J2060; J2405; J2543; J3411; J3475; J3490; J7030; J7050; J7060; J7070; J7608; J7611; J7620; Q9967; G0480

== ENCOUNTER 2018-07-25 13:57 | Inpatient (IN) | payer MEDICAID ==
[~2018-07-25] VITALS: Ht 172.7 cm; Wt 58.6 kg
[2018-07-25] MEDS ORDERED: LEVETIRACETAM 1000MG/100ML 100 ML IV ONE (14:15)
[2018-07-25 14:40] LABS: BASOPHILS % 0.5 % (0.0-2.0); EOSINOPHILS % 0.3 % (0.0-5.0); HEMATOCRIT. 38.8 % (42.0-52.0); HEMOGLOBIN. 12.7 g/dL (14.0-18.0); LYMPHOCYTES % 11.4 % (20.0-50.0); MEAN CORPUSCULAR HEMOGLOBIN 30.2 pg (28.0-32.0); MEAN PLATELET VOLUME 8.7 fl (7.4-10.4); MONOCYTES % 4.6 % (2.0-8.0); NEUTROPHILS % 83.2 % (40.0-76.0); PLATELET 204 x1000/uL (130-400); RED BLOOD CELL COUNT 4.22 mill/uL (4.7-6.1); RED CELL DISTRIBUTION WIDTH 15.5 % (11.6-14.6)
[2018-07-25] MEDS ORDERED: LORAZEPAM 2MG/ML CPJ ONE (14:41)
[2018-07-25] MEDS ORDERED: LORAZEPAM 2MG/ML CPJ IV ONE (14:45)
[2018-07-25 14:46] LABS: CHLORIDE 105 mEq/L (98-107)
[2018-07-25 14:51] LABS: ETHANOL BLOOD 140 mg/dL
[2018-07-25 16:12] LABS: CLARITY URINE CLOUDY (CLEAR); COLOR URINE YELLOW (YELLOW); KETONES URINE NEGATIVE (NEGATIVE); LEUKOCYTE ESTERASE URINE 2+ (NEGATIVE); NITRITE URINE NEGATIVE (NEGATIVE); OCCULT BLOOD URINE 2+ (NEGATIVE); PH URINE 5.5 (4.5-8.0); PROTEIN URINE 2+ (NEGATIVE); SPECIFIC GRAVITY URINE 1.017 (1.005-1.030); UROBILINOGEN URINE 0.2 E.U./dL (0.2-1.0)
[2018-07-25 16:23] LABS: *AMPHETAMINES SCREEN URINE NEGATIVE (NEGATIVE); *BARBITURATES SCREEN URINE NEGATIVE (NEGATIVE); *BENZODIAZEPINES SCREEN URINE NEGATIVE (NEGATIVE); *COCAINE SCREEN URINE NEGATIVE (NEGATIVE)
[2018-07-25 16:24] LABS: CANNABINOID URINE SCREEN NEGATIVE (NEGATIVE); METHADONE URINE SCREEN NEGATIVE (NEGATIVE); OPIATES URINE SCREEN NEGATIVE (NEGATIVE); PHENCYCLIDINE URINE SCREEN NEGATIVE (NEGATIVE)
[2018-07-25] MEDS ORDERED: LEVOFLOXACIN 750MG PREMIX 150 ML IV ONE (16:45)
[2018-07-25] MEDS ORDERED: NITROGLYCERIN 0.4MG TABLET SL SL PRN (17:30)
[2018-07-25] MEDS ORDERED: CLONIDINE 0.1MG TABLET PO PRN (17:30)
[2018-07-25] MEDS ORDERED: ONDANSETRON HCL 4MG/2ML INJ IV PRN (17:30)
[2018-07-25] MEDS ORDERED: ACETAMINOPHEN 325MG TABLET PO PRN (17:30)
[2018-07-25] MEDS ORDERED: IPRATROPIUM/ALBUTEROL 0.5-3(2.5)MG/3ML NEB INH PRN (17:30)
[2018-07-25] MEDS ORDERED: GUAIFENESIN 200MG/10ML SUGAR FREE UDC PO PRN (17:30)
[2018-07-25] MEDS ORDERED: DOCUSATE SODIUM 100MG CAPSULE PO PRN (17:30)
[2018-07-25] MEDS ORDERED: LORAZEPAM 2MG/ML CPJ IV PRN (17:30)
[2018-07-25] MEDS ORDERED: KETOROLAC 15MG/ML VIAL IV PRN (17:30)
[2018-07-25] MEDS ORDERED: MAGNESIUM/ALUMINUM HYDROXIDE/SIMETHICONE 30ML UDC PO PRN (17:30)
[2018-07-25] MEDS ORDERED: ENOXAPARIN 40MG/0.4ML SYR SUBCUT NR (18:15)
[2018-07-25] MEDS ORDERED: MVI, ADULT NO.1 10 ML, FOLIC ACID 1 MG, THIAMINE HCL 100 MG in SODIUM CHLORIDE 0.9% 1,0... IV SCH ×4 (18:30)
[2018-07-25] MEDS ORDERED: LEVETIRACETAM 500MG PREMIX 100 ML IV SCH (21:00)
[2018-07-25] MEDS ORDERED: ZOLPIDEM TARTRATE 5MG TABLET PO PRN (21:00)
[2018-07-25 22:20] VITALS: BP 126/97
[2018-07-25] MEDS ORDERED: CEFTRIAXONE 1 G PREMIX 50 ML IV SCH (23:00)
[2018-07-26] VITALS (7 sets, daily range): BP systolic 96–126; BP diastolic 52–98
[2018-07-26] MEDS ORDERED: LEVETIRACETAM 500MG in SODIUM CHLORIDE 0.9% 100ML IV SCH (09:00)
[2018-07-26] MEDS ORDERED: FAMOTIDINE 20MG TABLET PO SCH (09:00)
[2018-07-26] MEDS ORDERED: ENOXAPARIN 40MG/0.4ML SYR SUBCUT SCH (20:00)
== END 2018-07-26 16:07 | disposition home or self-care (01) | DRG 53 ==
LOC: ER 13:57 → 5WST 17:14 → EDBEDREQ 17:17 → ENRESERV 18:51
PROVIDERS: ADMIT Internal Medicine; ATTEND Internal Medicine
DX: G40.909 Epilepsy, unspecified, not intractable, without status epilepticus (principal); G92 Toxic encephalopathy; D61.818 Other pancytopenia; K76.9 Liver disease, unspecified; N39.0 Urinary tract infection, site not specified; F10.229 Alcohol dependence with intoxication, unspecified; Y90.9 Presence of alcohol in blood, level not specified
CPT/HCPCS: 36415; 71045; 73070; 80061; 80305; 80320; 83036; 87077; 87186; 96374; 99285; A4565; J0696; J1650; J1953; J1956; J2060; J3411; J3490; J7030; J7040; J7050; G0480

== ENCOUNTER 2018-08-16 08:21 | Inpatient (IN) | payer MEDICAID ==
[~2018-08-16] VITALS: Ht 172.7 cm; Wt 56.2 kg
[2018-08-16] MEDS ORDERED: SODIUM CHLORIDE 0.9% 1,000 ML IV ONE (08:34)
[2018-08-16] MEDS ORDERED: PHENYTOIN SODIUM EXTENDED 100MG CAPSULE PO ONE (08:45)
[2018-08-16] MEDS ORDERED: LORAZEPAM 2MG/ML CPJ IV ONE (08:45)
[2018-08-16 08:59] LABS: BASOPHILS % 0.8 % (0.0-2.0); CHLORIDE 107 mEq/L (98-107); EOSINOPHILS % 0.4 % (0.0-5.0); HEMATOCRIT. 34.4 % (42.0-52.0); HEMOGLOBIN. 11.7 g/dL (14.0-18.0); LYMPHOCYTES % 34.9 % (20.0-50.0); MEAN CORPUSCULAR HEMOGLOBIN 31.5 pg (28.0-32.0); MEAN CORPUSCULAR VOLUME 92.6 fL (80.0-94.0); MEAN PLATELET VOLUME 8.5 fl (7.4-10.4); MONOCYTES % 4.3 % (2.0-8.0); NEUTROPHILS % 59.6 % (40.0-76.0); PLATELET 286 x1000/uL (130-400); PROTHROMBIN TIME 10.7 sec (9.6-11.0); RED BLOOD CELL COUNT 3.72 mill/uL (4.7-6.1); RED CELL DISTRIBUTION WIDTH 17.3 % (11.6-14.6)
[2018-08-16] MEDS ORDERED: LEVETIRACETAM 1000MG/100ML 100 ML IV ONE (09:00)
[2018-08-16 09:10] LABS: CREATINE KINASE 192 IU/L (39-308)
[2018-08-16 09:14] LABS: ETHANOL BLOOD 343 mg/dL
[2018-08-16 11:38] LABS: CLARITY URINE CLEAR (CLEAR); COLOR URINE YELLOW (YELLOW); KETONES URINE NEGATIVE (NEGATIVE); LEUKOCYTE ESTERASE URINE 2+ (NEGATIVE); NITRITE URINE NEGATIVE (NEGATIVE); OCCULT BLOOD URINE 1+ (NEGATIVE); PROTEIN URINE 2+ (NEGATIVE); SPECIFIC GRAVITY URINE 1.013 (1.005-1.030); UROBILINOGEN URINE 0.2 E.U./dL (0.2-1.0)
[2018-08-16 12:36] LABS: *AMPHETAMINES SCREEN URINE NEGATIVE (NEGATIVE); *BARBITURATES SCREEN URINE NEGATIVE (NEGATIVE); *BENZODIAZEPINES SCREEN URINE NEGATIVE (NEGATIVE); *COCAINE SCREEN URINE NEGATIVE (NEGATIVE); CANNABINOID URINE SCREEN NEGATIVE (NEGATIVE); METHADONE URINE SCREEN NEGATIVE (NEGATIVE); OPIATES URINE SCREEN NEGATIVE (NEGATIVE); PHENCYCLIDINE URINE SCREEN NEGATIVE (NEGATIVE)
[2018-08-16 12:45] VITALS: BP 120/82
[2018-08-16] MEDS ORDERED: MAGNESIUM/ALUMINUM HYDROXIDE/SIMETHICONE 30ML UDC PO PRN (13:00)
[2018-08-16] MEDS ORDERED: ONDANSETRON HCL 4MG/2ML INJ IV PRN (13:00)
[2018-08-16] MEDS ORDERED: LORAZEPAM 2MG/ML CPJ IV PRN (13:00)
[2018-08-16] MEDS ORDERED: DOCUSATE SODIUM 100MG CAPSULE PO PRN (13:00)
[2018-08-16] MEDS ORDERED: ACETAMINOPHEN 325MG TABLET PO PRN (13:00)
[2018-08-16] MEDS ORDERED: CLONIDINE 0.1MG TABLET PO PRN (13:00)
[2018-08-16] MEDS: CHLORDIAZEPOXIDE 25MG CAPSULE PO SCH ×2 (14:00→21:35)
[2018-08-16 16:00] VITALS: BP 104/80
[2018-08-16 16:15] VITALS: BP 148/74
[2018-08-16] MEDS: DEXT 5%/0.45% NACL 1000ML 1,000 ML IV SCH (16:59)
[2018-08-16] MEDS: FAMOTIDINE 20MG/2ML VIAL IV SCH (17:00)
[2018-08-16] MEDS ORDERED: PNEUMOCOCCAL 23-VAL P-SAC VAC 0.5 ML IM ONE (17:15)
[2018-08-16 20:00] VITALS: BP 98/68
[2018-08-17] VITALS: BP 108/70
[2018-08-17 04:00] VITALS: BP 109/57
[2018-08-17] MEDS: CHLORDIAZEPOXIDE 25MG CAPSULE PO SCH ×3 (05:40→21:43)
[2018-08-17] MEDS ORDERED: LEVE1000 PO (06:13)
[2018-08-17 06:24] LABS: BASOPHILS % 0.7 % (0.0-2.0); EOSINOPHILS % 0.4 % (0.0-5.0); HEMATOCRIT. 29.9 % (42.0-52.0); LYMPHOCYTES % 15.5 % (20.0-50.0); MEAN CORPUSCULAR HEMOGLOBIN 30.8 pg (28.0-32.0); MEAN CORPUSCULAR VOLUME 91.7 fL (80.0-94.0); MEAN PLATELET VOLUME 8.8 fl (7.4-10.4); MONOCYTES % 8.5 % (2.0-8.0); NEUTROPHILS % 74.9 % (40.0-76.0); PLATELET 232 x1000/uL (130-400); RED BLOOD CELL COUNT 3.26 mill/uL (4.7-6.1); RED CELL DISTRIBUTION WIDTH 17.2 % (11.6-14.6)
[2018-08-17 06:35] LABS: CHLORIDE 106 mEq/L (98-107)
[2018-08-17 08:00] VITALS: BP 120/63
[2018-08-17] MEDS: MULTIVITAMINS,THER W-MINERALS TABLET PO SCH (08:44)
[2018-08-17] MEDS: FAMOTIDINE 20MG/2ML VIAL IV SCH (08:44)
[2018-08-17] MEDS: FOLIC ACID 1MG TABLET PO SCH (08:44)
[2018-08-17] MEDS: THIAMINE HCL 100MG TABLET PO SCH (08:48)
[2018-08-17] MEDS: DEXT 5%/0.45% NACL 1000ML 1,000 ML IV SCH ×2 (09:20→21:43)
[2018-08-17 12:00] VITALS: BP 100/53
[2018-08-17 16:00] VITALS: BP 108/60
[2018-08-17 20:00] VITALS: BP 116/68
[2018-08-17] MEDS: LEVETIRACETAM 500MG/5ML CUP PO SCH (21:43)
[2018-08-18] VITALS: BP 110/60
[2018-08-18 04:00] VITALS: BP 94/64
[2018-08-18] MEDS: CHLORDIAZEPOXIDE 25MG CAPSULE PO SCH ×3 (05:48→21:03)
[2018-08-18 08:00] VITALS: BP 95/54
[2018-08-18] MEDS: FOLIC ACID 1MG TABLET PO SCH (09:21)
[2018-08-18] MEDS: FAMOTIDINE 20MG/2ML VIAL IV SCH (09:21)
[2018-08-18] MEDS: THIAMINE HCL 100MG TABLET PO SCH (09:21)
[2018-08-18] MEDS: MULTIVITAMINS,THER W-MINERALS TABLET PO SCH (09:21)
[2018-08-18] MEDS: LEVETIRACETAM 500MG/5ML CUP PO SCH ×2 (09:22→21:03)
[2018-08-18] MEDS: DEXT 5%/0.45% NACL 1000ML 1,000 ML IV SCH ×2 (09:56→21:52)
[2018-08-18 12:00] VITALS: BP 96/61
[2018-08-18] MEDS: GUAIFENESIN 200MG/10ML SUGAR FREE UDC PO PRN (15:01)
[2018-08-18 16:25] VITALS: BP 114/47
[2018-08-18 20:00] VITALS: BP 111/72
[2018-08-19] VITALS: BP 113/63
[2018-08-19] MEDS: GUAIFENESIN 200MG/10ML SUGAR FREE UDC PO PRN ×4 (00:31→20:41)
[2018-08-19 04:00] VITALS: BP 117/66
[2018-08-19] MEDS: CHLORDIAZEPOXIDE 25MG CAPSULE PO SCH ×3 (05:45→21:01)
[2018-08-19 08:00] VITALS: BP 106/58
[2018-08-19] MEDS: FOLIC ACID 1MG TABLET PO SCH (09:10)
[2018-08-19] MEDS: THIAMINE HCL 100MG TABLET PO SCH (09:10)
[2018-08-19] MEDS: FAMOTIDINE 20MG/2ML VIAL IV SCH (09:11)
[2018-08-19] MEDS: MULTIVITAMINS,THER W-MINERALS TABLET PO SCH (09:11)
[2018-08-19] MEDS: LEVETIRACETAM 500MG/5ML CUP PO SCH ×2 (09:11→20:41)
[2018-08-19 12:00] VITALS: BP 110/61
[2018-08-19 16:00] VITALS: BP 107/65
[2018-08-19] MEDS: DEXT 5%/0.45% NACL 1000ML 1,000 ML IV SCH ×2 (16:05→16:07)
[2018-08-19 20:00] VITALS: BP 110/63
[2018-08-20] VITALS: BP 130/64
[2018-08-20 04:00] VITALS: BP 116/62
[2018-08-20] MEDS: DEXT 5%/0.45% NACL 1000ML 1,000 ML IV SCH (05:02)
[2018-08-20] MEDS: CHLORDIAZEPOXIDE 25MG CAPSULE PO SCH ×2 (05:02→15:18)
[2018-08-20] MEDS: GUAIFENESIN 200MG/10ML SUGAR FREE UDC PO PRN (05:06)
[2018-08-20 08:00] VITALS: BP 120/62
[2018-08-20] MEDS: FAMOTIDINE 20MG/2ML VIAL IV SCH (09:09)
[2018-08-20] MEDS: THIAMINE HCL 100MG TABLET PO SCH (09:09)
[2018-08-20] MEDS: MULTIVITAMINS,THER W-MINERALS TABLET PO SCH (09:09)
[2018-08-20] MEDS: FOLIC ACID 1MG TABLET PO SCH (09:09)
[2018-08-20] MEDS: LEVETIRACETAM 500MG/5ML CUP PO SCH (09:22)
[2018-08-20 12:00] VITALS: BP 106/46
[2018-08-20 15:40] VITALS: BP 105/48
[2018-08-20 16:00] VITALS: BP 110/66
== END 2018-08-20 17:25 | disposition home or self-care (01) | DRG 53 ==
LOC: ER 08:23 → EDBEDREQ 11:18 → EDBEDREQTM 11:18 → ENRESERV 12:32 → 5WST 13:34
PROVIDERS: ADMIT Hospitalist; ATTEND Hospitalist
DX: G40.89 Other seizures (principal); F10.229 Alcohol dependence with intoxication, unspecified; R27.0 Ataxia, unspecified
CPT/HCPCS: 36415; 71045; 80305; 80320; 82140; 82550; 83605; 84484; 96361; 96365; 96375; 97116; 97162; 97166; 97530; 97535; 99291; J1953; J2060; J3490; J7030; A4315; G0480

== ENCOUNTER 2018-08-25 10:22 | Emergency (ER) | payer MEDICAID ==
[~2018-08-25] VITALS: Ht 170.2 cm; Wt 67.0 kg
[2018-08-25] MEDS ORDERED: SODIUM CHLORIDE 0.9% 1,000 ML IV ONE (10:50)
[2018-08-25 11:52] LABS: EOSINOPHILS % 1.9 % (0.0-5.0); HEMATOCRIT. 35.6 % (42.0-52.0); HEMOGLOBIN. 11.9 g/dL (14.0-18.0); LYMPHOCYTES % 48.6 % (20.0-50.0); MEAN CORPUSCULAR HEMOGLOBIN 30.8 pg (28.0-32.0); MEAN CORPUSCULAR VOLUME 92.2 fL (80.0-94.0); MEAN PLATELET VOLUME 9.2 fl (7.4-10.4); MONOCYTES % 8.1 % (2.0-8.0); NEUTROPHILS % 40.4 % (40.0-76.0); PLATELET 191 x1000/uL (130-400); RED BLOOD CELL COUNT 3.86 mill/uL (4.7-6.1)
[2018-08-25 11:54] LABS: CHLORIDE 109 mEq/L (98-107)
[2018-08-25 11:58] LABS: ETHANOL BLOOD 213 mg/dL
[2018-08-25 14:18] VITALS: BP 120/80
== END 2018-08-25 15:47 | disposition home or self-care (01) ==
LOC: ER 10:22
DX: E86.0 Dehydration (principal); F10.129 Alcohol abuse with intoxication, unspecified; Z79.899 Other long term (current) drug therapy
CPT/HCPCS: 36415; 71045; 80053; 80320; 82962; 85025; 96360; 99284; J7030; G0480

== ENCOUNTER 2018-08-28 12:04 | Inpatient (IN) | payer MEDICAID ==
[~2018-08-28] VITALS: Ht 172.7 cm; Wt 78.0 kg
[2018-08-28] MEDS ORDERED: ASPIRIN 81MG TABLET PO ONE (13:15)
[2018-08-28] MEDS ORDERED: LEVETIRACETAM 500MG PREMIX 100 ML IV ONE (13:15)
[2018-08-28] MEDS ORDERED: ASPIRIN 81MG TABLET ONE (13:33)
[2018-08-28 13:49] LABS: BASOPHILS % 1.4 % (0.0-2.0); EOSINOPHILS % 2.9 % (0.0-5.0); HEMOGLOBIN. 12.7 g/dL (14.0-18.0); MEAN CORPUSCULAR HEMOGLOBIN 30.4 pg (28.0-32.0); MEAN CORPUSCULAR VOLUME 92.8 fL (80.0-94.0); MEAN PLATELET VOLUME 9.3 fl (7.4-10.4); MONOCYTES % 5.3 % (2.0-8.0); NEUTROPHILS % 27.4 % (40.0-76.0); PLATELET 158 x1000/uL (130-400); RED CELL DISTRIBUTION WIDTH 18.1 % (11.6-14.6)
[2018-08-28 13:54] LABS: INR 1.1; PARTIAL THROMBOPLASTIN TIME 33.3 sec (23.4-31.0); PROTHROMBIN TIME 10.8 sec (9.6-11.0)
[2018-08-28 13:57] LABS: CHLORIDE 109 mEq/L (98-107)
[2018-08-28 14:02] LABS: ETHANOL BLOOD 258 mg/dL
[2018-08-28 16:23] LABS: CLARITY URINE CLEAR (CLEAR); COLOR URINE YELLOW (YELLOW); KETONES URINE NEGATIVE (NEGATIVE); LEUKOCYTE ESTERASE URINE TRACE (NEGATIVE); NITRITE URINE NEGATIVE (NEGATIVE); OCCULT BLOOD URINE NEGATIVE (NEGATIVE); PROTEIN URINE NEGATIVE (NEGATIVE); SPECIFIC GRAVITY URINE 1.007 (1.005-1.030); UROBILINOGEN URINE 0.2 E.U./dL (0.2-1.0)
[2018-08-28 16:34] LABS: *AMPHETAMINES SCREEN URINE NEGATIVE (NEGATIVE); *BARBITURATES SCREEN URINE NEGATIVE (NEGATIVE); *COCAINE SCREEN URINE NEGATIVE (NEGATIVE); CANNABINOID URINE SCREEN NEGATIVE (NEGATIVE); METHADONE URINE SCREEN NEGATIVE (NEGATIVE); OPIATES URINE SCREEN NEGATIVE (NEGATIVE); PHENCYCLIDINE URINE SCREEN NEGATIVE (NEGATIVE)
[2018-08-28 16:35] LABS: *BENZODIAZEPINES SCREEN URINE PRESUMTIVE POSITIVE (NEGATIVE)
[2018-08-28 18:00] VITALS: BP 113/72
[2018-08-28 20:00] VITALS: BP 121/78
[2018-08-28] MEDS ORDERED: HYDRALAZINE 20MG/ML VIAL IV PRN (21:45)
[2018-08-28] MEDS ORDERED: GUAIFENESIN 200MG/10ML SUGAR FREE UDC PO PRN (21:45)
[2018-08-28] MEDS ORDERED: DIPHENHYDRAMINE 50MG/ML VIAL IV PRN (21:45)
[2018-08-28] MEDS ORDERED: DOCUSATE SODIUM 100MG CAPSULE PO PRN (21:45)
[2018-08-28] MEDS ORDERED: NA PHOS,M-B/NA PHOS,DI-BA ENEMA 118ML PR PRN (21:45)
[2018-08-28] MEDS ORDERED: LEVOFLOXACIN 500MG PREMIX 100 ML IV SCH ×2 (21:45→23:00)
[2018-08-28] MEDS ORDERED: LORAZEPAM 2MG/ML CPJ IV PRN (21:45)
[2018-08-28] MEDS ORDERED: IPRATROPIUM/ALBUTEROL 0.5-3(2.5)MG/3ML NEB INH PRN (21:45)
[2018-08-28] MEDS ORDERED: MAGNESIUM/ALUMINUM HYDROXIDE/SIMETHICONE 30ML UDC PO PRN (21:45)
[2018-08-28] MEDS ORDERED: ACETAMINOPHEN 325MG TABLET PO PRN (21:45)
[2018-08-28] MEDS ORDERED: ONDANSETRON HCL 4MG/2ML INJ IV PRN (21:45)
[2018-08-28] MEDS ORDERED: HYDROMORPHONE HCL/PF 2MG/ML CPJ IV PRN (21:45)
[2018-08-28] MEDS ORDERED: HYDROCODONE/ACETAMINOPHEN 10/325MG TABLET PO PRN (21:45)
[2018-08-28 23:49] VITALS: BP 128/75
[2018-08-29] VITALS: BP 120/88
[2018-08-29] MEDS ORDERED: MVI, ADULT NO.1 10 ML, FOLIC ACID 1 MG, THIAMINE HCL 100 MG in SODIUM CHLORIDE 0.9% 1,0... IV SCH ×4
[2018-08-29 04:00] VITALS: BP 108/52
[2018-08-29] MEDS ORDERED: SODIUM CHLORIDE 0.9% INJ 3ML FLUSH IVF SCH (06:00)
[2018-08-29 06:59] LABS: BASOPHILS % 0.6 % (0.0-2.0); EOSINOPHILS % 0.9 % (0.0-5.0); HEMATOCRIT. 30.1 % (42.0-52.0); HEMOGLOBIN. 10.2 g/dL (14.0-18.0); LYMPHOCYTES % 21.7 % (20.0-50.0); MEAN CORPUSCULAR HEMOGLOBIN 31.1 pg (28.0-32.0); MEAN PLATELET VOLUME 9.4 fl (7.4-10.4); NEUTROPHILS % 66.8 % (40.0-76.0); PLATELET 141 x1000/uL (130-400); RED BLOOD CELL COUNT 3.28 mill/uL (4.7-6.1); RED CELL DISTRIBUTION WIDTH 17.5 % (11.6-14.6)
[2018-08-29 07:38] LABS: CHLORIDE 105 mEq/L (98-107)
[2018-08-29 07:53] LABS: CREATINE KINASE 253 IU/L (39-308); HDL CHOLESTEROL 83 mg/dL (40-59); LDL CHOLESTEROL 21 mg/dL (5-100)
[2018-08-29 07:55] LABS: CREATINE KINASE MB FRACTION 5.1 ng/mL (0.5-3.6)
[2018-08-29] MEDS ORDERED: SODIUM CHLORIDE 0.45% 1,000 ML IV SCH (08:00)
[2018-08-29] MEDS ORDERED: LEVETIRACETAM 500MG TABLET PO SCH (09:00)
[2018-08-29 12:00] VITALS: BP 110/71
[2018-08-29 13:30] VITALS: BP 110/71
[2018-08-29] MEDS ORDERED: LEVOFLOXACIN 500MG TABLET PO SCH (21:00)
== END 2018-08-29 15:46 | disposition home or self-care (01) | DRG 201 ==
LOC: ER 12:04 → 8WST 16:20 → ENRESERV 16:20 → 8WST 17:40 → UNDOADMIN 17:40
PROVIDERS: ADMIT Internal Medicine; ATTEND Internal Medicine
DX: R00.1 Bradycardia, unspecified (principal); D64.9 Anemia, unspecified; I10 Essential (primary) hypertension; D72.819 Decreased white blood cell count, unspecified; F10.229 Alcohol dependence with intoxication, unspecified; G40.909 Epilepsy, unspecified, not intractable, without status epilepticus; Y90.8 Blood alcohol level of 240 mg/100 ml or more; R74.0 Nonspecific elevation of levels of transaminase and lactic acid dehydrogenase [LDH]
CPT/HCPCS: 36415; 71045; 80061; 80305; 80320; 82550; 82553; 82962; 83880; 84439; 84443; 84484; 93005; 99285; J1953; J1956; J3411; J3490; J7030; J7040; G0480